=== PATIENT | female | born 1945 | race Two or more races ===

== ENCOUNTER 2025-07-11 11:24 | Emergency (ER) | payer OTHER, MEDICAID ==
[~2025-07-11] VITALS: Ht 157.5 cm; Wt 58.4 kg
--- NOTE | 2025-07-11 12:03 | ED.PDOC ---
Musculoskeletal HPI Comments 80y F who presents to the ED for chief complaint of fall injury. Pt states she has fall injury on Wednesday at 0200 AM, 5 days prior. Pt states she had ground level fall on carpet but denies any head injury or loss of consciousness. Pt states since, she has been having R sided rib pain with sharp pains noted upon deep inspiration. Pt otherwise denies any chest pain, shortness of breath, diaphoresis, or associated symptoms. Pt otherwise has noted BP of 164/54 with otherwise stable vitals in the ED. 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 Family History Family History: Reviewed,noncontributory to illness Social History Smoker: Non-Smoker Alcohol: Denies ETOH Use Drugs: Denies Drug Use Lives In: Home Constitutional: denies: chills, diaphoresis, fatigue, fever, malaise, sweats, weakness, others EENTM: denies: blurred vision, double vision, ear bleeding, ear discharge, ear drainage, ear pain, ear ringing, eye pain, eye redness, hearing loss, mouth pain, mouth swelling, nasal discharge, nose bleeding, nose congestion, nose pain, photophobia, tearing, throat pain, throat swelling, voice changes, others Respiratory: denies: cough, hemoptysis, orthopnea, SOB at rest, shortness of b reath, SOB with excertion, stridor, wheezing, others Cardiovascular: denies: chest pain, dizzy spells, diaphoresis, Dyspnea on exertion, edema, irregular heart beat, left arm pain, lightheadedness, palpitations, PND, syncope, others Gastrointestinal: denies: abdomen distended, abdominal pain, blood streaked bowels, constipated, diarrhea, dysphagia, difficulty swallowing, hematemesis, melena, nausea, poor appetite, poor fluid intake, rectal bleeding, rectal pain, vomiting, others Genitourinary: denies: abnormal vagina bleeding, burning, dyspareunia, dysuria, flank pain, frequency, hematuria, incontinence, pain, , vagina discharge, urgency, others Neurological: denies: dizziness, fainting, headache, left sided numbness, left sided weakness, numbness, paresthesia, pre-existing deficit, right sided numbness, right sided weakness, seizure, speech problems, tingling, tremors, weakness, others Musculoskeletal: denies: back pain, gout, joint pain, joint swelling, muscle pain, muscle stiffness, neck pain, others Integumetry: denies: bruises, change in color, change in hair/nails, dryness, laceration, lesions, lumps, rash, wounds, others Allergic/Immunocompromised: denies: Difficulty Healing, Frequent Infections, Hives, Itching, others Hematologic/Lymphatic: denies: anemia, blood clots, easy bleeding, easy bruising, swollen glands, others Endocrine: denies: excessive hunger, excessive sweating, excessive thirst, excessive urination, flushing, intolerance to cold, intolerance to heat, unexplained weight gain, unexplained weight loss, others Psychiatric: denies: anxiety, bipolar disorder, depression, hopeless, panic disorder, schizophrenia, sleepless, suicidal, others All Other Systems: Reviewed and Negative Physical Exam General Appearance: Mild Distress, Moderate Distress, Normal HEENT: Normal ENT Inspection, Pharynx Normal, TMs Normal Neck: Full Range of Motion, Non-Tender, Normal, Normal Inspection Respiratory: Lungs Clear, No Accessory Muscle Use, No Respiratory Distress, Normal Breath Sounds, Other (And with a exquisite pain of the right rib cage mid section no crepitation and no signs of obvious fractures) Cardiovascular: No Edema, No JVD, No Murmur, No Gallop, Normal Peripheral Pulses, Regular Rate/Rhythm Breast Exam: Deferred Gastrointestinal: No Organomegaly, Non Tender, No Pulsatile Mass, Normal Bowel Sounds, Soft Genitalia: Deferred Pelvic: Deferred Rectal: Deferred Extremities: No calf tenderness, Normal capillary refill, Normal inspection, Normal range of motion, Non-tender, No pedal edema Neurologic: Alert, manager of network II-XII nml as Tested, No Motor Deficits, Normal Affect, Normal Mood, No Sensory Deficits Cerebellar Function: Normal Reflexes: Normal Skin: Dry, Normal Color, Warm Peripheral Pulses: 2+ carotid (R), 2+ carotid (L) Lymphatic: No Adenopathy Was a procedure done? Was a procedure done?: No Differential Diagnosis EXT Differential Diagnosis: Fracture, Contusion, Strain Other Differential Diagnosis chest wall pain, muscle strain, spasm, musculoskeletal chest pain, rib fracture, X-Ray, Labs, Meds, VS Vital Signs Date Time Temp Pulse Resp B/P (MAP) Pulse Ox O2 Delivery O2 Flow Rate FiO2 07/11/25 11:29 98.1 78 16 164/54 97 98.1 [place] [address] Ph: [phone] DIAGNOSTIC IMAGING Diagnostic Imaging Report : [id number] Signed PATIENT: SHANE CORBIN ACCT: [id number] UNIT: [id number] : 1945 LOC: ER ROOM / BED: / AGE / SEX: 80 / F ADM STATUS: REG ER SERVICE [id number] ORDERING PHYSICIAN: BLU LACKEY MD PROCEDURE(s): RRIBS - R RIB XRAY REASON: Fall at home ORDER NUMBER(s): [id number], ACCESSION NUMBER(s): [id number] CHEST RADIOGRAPH Indication: Fall at home Technique: XY R RIB XRAY Comparison: None FINDINGS: The cardiac silhouette is unremarkable. The lungs demonstrate no pulmonary airspace consolidation. The pulmonary vasculature is unremarkable. There is no pleural effusion. There is no pneumothorax. No radiographic evidence for right rib fracture. IMPRESSION: No pulmonary airspace consolidation. ATED BY: LIU CUEVA MD DICTATED DATE/TIME: 07/11/25 1234 SIGNED BY: LUI CUEVA MD SIGNED DATE/TIME: 07/11/25 1234 CC: X-Ray, Labs, Meds, VS Comment Patient came to the emergency department after a fall and injury to her right rib she has a exquisite pain to right chest wall The x-rays is normal Patient will be discharged home to follow up with her PCP Time of 1ST Reevaluation: 12:30 Reevaluation 1ST: Unchanged Patient Education/Counseling: Diagnosis, Treatment, Prognosis, Need For Follow Up Family Education/Counseling: Diagnosis, Treatment, Prognosis, Need For Follow Up Departure 1 Departure Time of Disposition: 12:44 Impression: Primary Impression: Fall at home Additional Impression: Contusion of rib on right side Disposition: 01 HOME / SELF CARE / HOMELESS Condition: Fair Additional Instructions: Use local heat and follow up with your PCP e-Prescriptions Naproxen (Naproxen) 375 Mg Tab 375 MG PO TID for 10 Days, #30 TAB Prov: BLU LACKEY MD 07/11/25 Discharged With: Self Critical Care Note Critical Care Time?: No Stability Stability form required: No Heart Score Heart Score: Heart Score Response (Comments) Value History N/A 0 EKG N/A 0 Age >65 2 Risk Factors No known risk factors 0 Troponin N/A 0 Total 2 I personally scribed for BLU LACKEY MD ([email or web address]) on 07/11/25 at 12:03. Electronically submitted by [employer] (Ludi). I personally scribed for BLU LACKEY MD ([email or web address]) on 07/11/25 at 12:39. Electronically submitted by [employer] (Ludi). BLU LACKEY MD Jul 11, 2025 12:03
--- NOTE | 2025-07-11 12:32 | DVH ---
CHEST RADIOGRAPH Indication: Fall at home Technique: XY R RIB XRAY Comparison: None FINDINGS: The cardiac silhouette is unremarkable. The lungs demonstrate no pulmonary airspace consolidation. Th e pulmonary vasculature is unremarkable. There is no pleural effusion. There is no pneumothorax. No radiographic evidence for right rib fracture. IMPRESSION: No pulmonary airspace consolidation.
[2025-07-11] MEDS ORDERED: NAPR-957 PO (12:48)
[2025-07-11 14:44] VITALS: BP 132/66; PULSE 74; RESP 20; TEMP 97; O2SAT 98
== END 2025-07-11 14:47 | disposition home or self-care (01) ==
LOC: ER 11:24
DX: S20.211A Contusion of right front wall of thorax, initial encounter (principal); W18.30XA Fall on same level, unspecified, initial encounter; Y93.89 Activity, other specified; Y92.009 Unspecified place in unspecified non-institutional (private) residence as the place of occurrence of the external cause; Y99.8 Other external cause status
CPT/HCPCS: 71101